=== PATIENT | female | born 1940 | race Caucasian/White ===

== ENCOUNTER → 2017-03-29 | Outpatient (CLI) | payer OTHER ==
[~2017-03-29] MED LIST: ACCUNEB SO1.25 MG/1; APAP500 PO; ASCRIPTIN 325325 MG PO; CALCIUM CITRAT1 EA14 PO; CARISOPRODOL 3350 MG; COLACE100 MG PO; ESTRACE0.5 MG PO; FENOFIBRATE160 MG PO; GLUCOPHAGE500 MG PO; HYDROCHLOROTHIA25 M1 PO; HYZAAR 50-12.51 TAB PO; LEVOXYL100 MCG PO; LISINOPRIL40 MG PO; LOPRESSOR 50 MG50 M1 PO; MOBIC15 MG PO; MULTIVITAMINS1 EAC7 PO; NORVASC10 MG PO; OMEGA 3-6-9 CO1 EACH PO; OMEPRAZOLE40 MG PO; PERCOCET 5-3251 EACH; PROZAC 20 MG20 MG PO; SIMVASTATIN40 MG PO; TRAMADOL 50 MG50 MG PO
== END ==
LOC: M.CT 13:30
DX: N83.9 Noninflammatory disorder of ovary, fallopian tube and broad ligament, unspecified (principal); K59.00 Constipation, unspecified; M48.061 Spinal stenosis, lumbar region without neurogenic claudication; M47.896 Other spondylosis, lumbar region; M43.17 Spondylolisthesis, lumbosacral region; Z90.710 Acquired absence of both cervix and uterus; Z98.890 Other specified postprocedural states

== ENCOUNTER → 2017-04-06 | Outpatient (CLI) | payer OTHER | LOC: M.ULTRA 03-30 10:40 | DX: N83.291 Other ovarian cyst, right side (principal); R19.09 Other intra-abdominal and pelvic swelling, mass and lump; Z90.710 Acquired absence of both cervix and uterus ==

== ENCOUNTER → 2017-09-06 | Outpatient (CLI) | payer OTHER | LOC: M.ULTRA 07-03 10:30 → M.RAD 12:42 → M.ULTRA 13:30 | DX: Z12.31 Encounter for screening mammogram for malignant neoplasm of breast (principal); N83.291 Other ovarian cyst, right side; Z90.710 Acquired absence of both cervix and uterus ==

== ENCOUNTER → 2019-04-22 | Outpatient (CLI) | payer OTHER ==
[2019-04-22 10:05] LABS: CREATININE 0.9 mg/dL (0.6-1.3)
== END ==
LOC: M.CT 04-14 08:43 → M.LAB 09:23 → M.CT 11:00
PROVIDERS: Surgery Vascular Surgery
DX: I65.23 Occlusion and stenosis of bilateral carotid arteries (principal); R90.82 White matter disease, unspecified

== ENCOUNTER 2019-05-11 09:25 | Emergency (ER) | payer OTHER ==
[~2019-05-11] VITALS: Ht 165.1 cm; Wt 90.7 kg
[2019-05-11] MEDS ORDERED: LIDODERM1 EACH TOP ×2 (11:56→12:11)
[2019-05-11 12:32] VITALS: BP 122/61
== END 2019-05-11 12:33 | disposition home or self-care (01) ==
LOC: M.ERS 09:25
DX: M54.5 Low back pain (principal); I10 Essential (primary) hypertension; E03.9 Hypothyroidism, unspecified; M19.90 Unspecified osteoarthritis, unspecified site; I48.91 Unspecified atrial fibrillation; Z88.5 Allergy status to narcotic agent; Z88.8 Allergy status to other drugs, medicaments and biological substances

== ENCOUNTER → 2019-05-13 | Outpatient (CLI) | payer OTHER ==
[~2019-05-13] MED LIST changes: +LIDODERM1 EACH TOP
== END ==
LOC: M.ULTRA 09:32
DX: N83.201 Unspecified ovarian cyst, right side (principal); Z90.710 Acquired absence of both cervix and uterus

== ENCOUNTER → 2019-12-26 | Outpatient (CLI) | payer OTHER | LOC: M.ULTRA 15:30 | DX: R22.32 Localized swelling, mass and lump, left upper limb (principal) ==

== ENCOUNTER 2020-08-09 08:17 | Emergency (ER) | payer OTHER ==
[~2020-08-09] VITALS: Ht 165.1 cm; Wt 90.3 kg
--- NOTE | ~2020-08-09 | EMS ---
[place] [address] EMS Patient Care Report Name: JAQUAN MEJIA Room: [facility]#: [id number] Admission: 08/09/20 Attend Phys: Discharge: Date of : 40 Report #: [id number] THIS REPORT FOR: //name// Report Transmitted: 08/09/2020 09:43 EMS Care Summary [facility] Incident [id number] @ 08/09/2020 07:42 Incident Location [address] [place] [address] Patient JAQUAN MEJIA Female, 80 Years 1940 Patient Address [address] [place] [address] Patient History Hypertension (HTN),Stroke/CVA,Ovarian/Uterine Cancer, Patient Allergies Codeine, Patient Medications Aspirin, Chief Complaint Nose bleed Disposition Transported No Lights/[place] Dispatch Reason Hemorrhage/Laceration Transported To [facility] Narrative Dispatched to a residence for 80y/o female with a nose bleed. Upon arrival pt. was alert and oriented. Pt. was holding tissue on her nose with pressure., [place] [id number] EMS Patient Care Report Name: JAQUAN MEJIA Room: [facility]#: [id number] Admission: 08/09/20 Attend Phys: Discharge: Date of : 40 Report #: [id number] bleeding was still active. Pt. stated that she has had 5 nose bleeds in the past 2 weeks and this one had been about 1 hour. ABD pads were used for bleeding control and pt. was coached through applying pressure, this was continued during transport. Bleeding slowed during transport but did not completely stop. VS were stable. Pt. was transported to [place] for emergency services. Initial Vitals @07:47P: 100,R: 20,BP: 144/62,Pain: 0/10,GCS: 15,SpO2: 97,Revised Trauma: 12, @08:00P: 72,R: 20,BP: 102/70,GCS: 15,SpO2: 98,Revised Trauma: 12, @08:15P: 80,R: 20,BP: 118/59,Pain: 0/10,GCS: 15,SpO2: 98,Revised Trauma: 12, Assessments @07:45MENTAL:No Abnormalities,SKIN:No Abnormalities,HEENT:Head/Face: Other,Neck/Airway: No Abnormalities,LUNG SOUNDS:General: No Abnormalities,Left Upper: No Abnormalities,Right Upper: No Abnormalities,Left Lower: No Abnormalities,Right Lower: No Abnormalities,ABDOMEN:General: No Abnormalities,Left Upper: No Abnormalities,Right Upper: No Abnormalities,Left Lower: No Abnormalities,Right Lower: No Abnormalities,PELVIS//GI:No Abnormalities,EXTREMITIES:Left Arm: No Abnormalities,Right Arm: No Abnormalities,Left Leg: No Abnormalities,Right Leg: No Abnormalities,PULSE:NEURO:No Abnormalities, Impression Hemorrhage Procedures @07:46Bleeding ControlResponse: ImprovedFailed Timeline 07:38,Call Received 07:42,Dispatched 07:42,En Route 07:44,Initial Responder On Scene 07:44,On Scene 07:45,At Patient 07:46,Bleeding Control,Response: ImprovedFailed, 07:47,BP: 144/62 M,PULSE: 100,RR: 20 R,SPO2: 97 Ox,ETCO2: ,BG: ,PAIN: 0,GCS: 15, 07:55,Depart Scene 08:00,BP: 102/70 M,PULSE: 72,RR: 20 R,SPO2: 98 Ox,ETCO2: ,BG: ,PAIN: ,GCS: 15, 08:15,At Destination 08:15,BP: 118/59 M,PULSE: 80,RR: 20 R,SPO2: 98 Ox,ETCO2: ,BG: ,PAIN: 0,GCS: 15, 08:20,Transfer Patient 09:00,Call Closed 09:00,[place] [address] EMS Patient Care Report Name: JACKIEJAQUAN Room: [facility]#: [id number] Admission: 08/09/20 Attend Phys: Discharge: Date of : 40 Report #: [id number] Disclaimer [email or web address] Copyright 2020 [employer] This EMS Care Summary contains data elements from the applicable legal record (which may be displayed differently). It is designed to provide pertinent information for the following purposes: continuity of care, clinical quality, and state data reporting. The complete legal record is available to ED staff and administrators of the receiving hospital in [facility]'s Patient Tracker. All data is provided "as is."
[2020-08-09 09:19] LABS: ABSOLUTE BASOPHILS 0.1 thou/uL (0.0-0.2); ABSOLUTE EOSINOPHILS 0.3 thou/uL (0.0-0.7); ABSOLUTE LYMPHOCYTES 1.3 thou/uL (0.8-5.3); ABSOLUTE MONOCYTES 0.5 thou/uL (0.0-1.2); ABSOLUTE NEUTROPHILS 2.5 thou/uL (1.6-8.1); BASOPHILS 1.4 %; EOSINOPHILS 5.6 %; HEMATOCRIT 39.6 % (37.0-47.0); HEMOGLOBIN 13.4 gm/dL (12.0-15.0); LYMPHOCYTES 28.8 %; MCH 30.5 pg (26.0-34.0); MCHC 33.8 g/dL (28.0-37.0); MCV 90.3 fL (80.0-100.0); MONOCYTES 9.9 %; MPV 7.4 fl. (7.2-11.1); NUCLEATED RBCS 0 /100WBC; PLATELET COUNT* 278 thou/uL (150-400); POLYS 54.3 %; RBC 4.38 mil/uL (4.20-5.00); RDW-CV 13.8 % (10.5-14.5); WBC 4.6 thou/uL (4.0-11.0)
[2020-08-09] MEDS ORDERED: SPIRONOLACTONE25 M1 PO (09:28)
[2020-08-09] MEDS ORDERED: ASA81BEC PO (09:28)
[2020-08-09] MEDS ORDERED: SYNTHROID112 MC1 PO (09:29)
[2020-08-09] MEDS ORDERED: OMEPRAZOLE 20 M20 M1 PO (09:29)
[2020-08-09] MEDS ORDERED: MIRALAX119 GM PO (09:29)
[2020-08-09 10:42] VITALS: BP 114/64
== END 2020-08-09 10:43 | disposition home or self-care (01) ==
LOC: M.ERS 08:17
PROVIDERS: Emergency Medicine Emergency Medical Services
DX: R04.0 Epistaxis (principal); M19.90 Unspecified osteoarthritis, unspecified site; I10 Essential (primary) hypertension; I48.91 Unspecified atrial fibrillation; E03.9 Hypothyroidism, unspecified; Z86.73 Personal history of transient ischemic attack (TIA), and cerebral infarction without residual deficits; Z88.5 Allergy status to narcotic agent; Z88.8 Allergy status to other drugs, medicaments and biological substances

== ENCOUNTER → 2020-12-08 | Outpatient (CLI) | payer OTHER ==
[~2020-12-08] MED LIST changes: +ASA81BEC PO; +MIRALAX119 GM PO; +OMEPRAZOLE 20 M20 M1 PO; +SPIRONOLACTONE25 M1 PO; +SYNTHROID112 MC1 PO
== END ==
LOC: M.RAD 08:37
DX: Z12.31 Encounter for screening mammogram for malignant neoplasm of breast (principal)